=== PATIENT | male | born 1965 | race Two or more races ===

== ENCOUNTER 2020-11-06 16:24 | Inpatient (IN) | payer OTHER ==
[~2020-11-06] VITALS: Ht 165.1 cm; Wt 85.4 kg
[~2020-11-06 16:24] MED LIST: ETOMIDATE 40 MG/20 ML ONE; MIDAZOLAM 1 MG/ML, 5ML ONE; PROPOFOL 10 MG/ML, 100ML IV ONE; SUCCINYLCHOLINE 20 MG/ML, 10ML ONE; VECURONIUM 10 MG ONE
[2020-11-06] MEDS ORDERED: SODIUM CHLORIDE 0.9% 1,000ML IVBOLUS ONE ×2 (17:00→20:00)
[2020-11-06 17:22] LABS: BASOPHILS % (AUTO) 0 % (0-1); EOSINOPHILS % (AUTO) 0 % (1-7); LYMPHOCYTES % (AUTO) 9 % (22-44); MEAN CORPUSCULAR HEMOGLOBIN 33.2 pg (27.5-34.5); MEAN CORPUSCULAR HGB CONC 35.3 g/dL (33.2-36.2); MEAN PLATELET VOLUME 9.5 fL (7.4-10.4); MONOCYTES % (AUTO) 5 % (2-9); NEUTROPHILS % (AUTO) 86 % (42-75); PLATELET COUNT 178 x10^3/uL (130-400); RED BLOOD COUNT 4.76 x10^6/uL (4.38-5.82); RED CELL DISTRIBUTION WIDTH 12.7 % (9.4-14.8)
[2020-11-06 17:23] LABS: MD NO
[2020-11-06 17:33] LABS: ALANINE AMINOTRANSFERASE 138 U/L (12-78); ANION GAP 19 mmol/L (5-15); CALCIUM 8.1 mg/dL (8.5-10.1); CHLORIDE 104 mmol/L (98-107); CREATININE 2.04 mg/dL (0.7-1.3)
[2020-11-06 17:38] LABS: ALKALINE PHOSPHATASE 66 U/L (45-117); BILIRUBIN,TOTAL 0.7 mg/dL (0.2-1.0); TOTAL PROTEIN 7.8 g/dL (6.4-8.2); TROPONIN I < 0.015 ng/mL (0.000-0.045)
--- NOTE | 2020-11-06 17:42 | NUR ---
DISCUSSION REGARDING INTUBATION. PREPARATIONS MADE FOR INTUBATION AND PT'S SPO2 CAME UP TO UPPER 80'S/LOW 90'S. CURRENTLY ALLOWING SPO2 85 AND ABOVE PER ERMD ORDERS. PT REMAINS ON NRB. MOVED TO ABDOMEN LAYING FLAT FOR IMPROVED OXYGENATION. DAUGHTER AT BEDSIDE. SIDE RAILS UP, CALL LIGHT IN REACH.
[2020-11-06] MEDS ORDERED: DEXAMETHASONE 4 MG/ML, 1ML ONE (17:45)
[2020-11-06] MEDS ORDERED: PIPERACILLIN/TAZO/PMX 3.375GM 50 ML ONE (17:51)
--- NOTE | 2020-11-06 17:55 | NUR ---
PER DR SOLO NO FURTHER FLUIDS TO BE ADMINISTERED BEYOND FIRST LITER. CONTRIBUTES LACTATE TO HYPOXIA.
--- NOTE | 2020-11-06 18:01 | NUR ---
DISCUSSION WITH ERMD REGARDING LABS, MEDS AND VS. AWAITING FURTHER ORDERS.
[2020-11-06] MEDS ORDERED: DEXAMETHASONE 4 MG/ML, 1ML IVPush STA (18:16)
[2020-11-06 18:28] LABS: ACETONE, SERUM Small (20mg/dL) (Negative)
[2020-11-06] MEDS ORDERED: ENOXAPARIN 60 MG/0.6 ML SQ SCH ×2 (18:30→19:00)
[2020-11-06] MEDS ORDERED: PIPERACILLIN/TAZO/PMX 3.375GM 50 ML IV ONE (18:30)
[2020-11-06] MEDS ORDERED: ENOXAPARIN 40 MG/0.4 ML ONE (18:34)
[2020-11-06] MEDS ORDERED: ENOXAPARIN 60 MG/0.6 ML ONE (18:36)
--- NOTE | 2020-11-06 18:40 | NUR ---
PT SAT UP WELL FOR IMAGING, AND REQUESTED URINAL WHICH HE USED WELL INDEPDENENTLY. RT IN TO PLACE PT ON OPTIFLOW, AND NOW BACK IN PRONE POSITION WITH FLUIDS RUNNING ORDERED. STILL NO ADDITIONAL NS AT THIS TIME. PT DOZES TO SLEEP, MAINTAINING O2. SIDE RAILS UP, CALL LIGHT IN REACH.
--- NOTE | 2020-11-06 19:05 | NUR ---
REPORT TO JOANIE HEATH. UA COLLECTED AND SENT TO LAB.
--- NOTE | 2020-11-06 19:08 | NUR ---
REPORT FROM STACEY ASSUMED CARE OF PT AT THIS TIME
--- NOTE | 2020-11-06 19:12 | NUR ---
NOTIFIED OF BP NEW ORDERS RECIEVED
--- NOTE | 2020-11-06 19:39 | NUR ---
NEW FLUID BOLUS ORDERED BY FO BP
[2020-11-06 19:51] LABS: MICROSCOPIC INDICATED
--- NOTE | 2020-11-06 20:05 | NUR ---
SATS IN THE 70 DR HARDY TO BS, PREPAIRING TO INTUBATE
[2020-11-06] MEDS ORDERED: EPINEPHRINE SYRINGE 0.1 MG/ML, 10ML ONE (20:14)
[2020-11-06] MEDS ORDERED: MIDAZOLAM 1 MG/ML, 2ML IVPush ONE ×2 (20:30)
[2020-11-06] MEDS ORDERED: MIDAZOLAM HCL 50 MG in SODIUM CHLORIDE 0.9% 40 ML IV PRN (20:30)
[2020-11-06] MEDS ORDERED: ETOMIDATE 20 MG/10 ML IV ONE (20:30)
[2020-11-06] MEDS ORDERED: SUCCINYLCHOLINE 20 MG/ML, 10ML IVPush ONE (20:30)
--- NOTE | 2020-11-06 20:46 | NUR ---
DR HARDY INTUBATED 8.0 ETT AT 23 AT TEETH, PT ON 100%FIO2 WITH 15 PEEP VERSED GTT FOR SEDATION, POSADAS AND OG PLACED
[2020-11-06] MEDS ORDERED: VECURONIUM 10 MG IVPush ONE (21:00)
--- NOTE | 2020-11-06 21:04 | NUR ---
REPORT TO HENRY PT TO ICU5 WITH RT RN AND TECH
[2020-11-06 21:06] VITALS: BP 103/75
[2020-11-06] MEDS ORDERED: LACTATED RINGERS 1,000 ML IV SCH (21:30)
[2020-11-06] MEDS ORDERED: ONDANSETRON 2MG/ML, 2ML IVPush PRN (21:30)
[2020-11-06] MEDS ORDERED: PHARMACY MAY ADJ FOR RENAL FX MC SCH (21:30)
[2020-11-06] MEDS ORDERED: ACETAMINOPHEN 650 MG SUPP PR PRN (21:30)
[2020-11-06] MEDS ORDERED: PHARMACY MAY ADJ FOR RENAL FX MC PRN (21:30)
[2020-11-06] MEDS ORDERED: Enoxaparin 1 mg/kg protocol SQ SCH (21:30)
[2020-11-06] MEDS ORDERED: LABETALOL 5MG/ML, 20ML IVPush PRN (22:00)
[2020-11-06] MEDS ORDERED: FENTANYL PF 100 MCG/2ML IVPush PRN (22:30)
[2020-11-06] MEDS: INSULIN LISPRO 100 UNITS/ML, PEN SQ-INSULIN SCH (22:31)
[2020-11-06] MEDS: THIAMINE 100 MG in SODIUM CHLORIDE 0.9% 50 ML IV SCH (22:34)
[2020-11-06] MEDS: MELATONIN 5 MG TABLET PO/NG SCH (22:35)
[2020-11-06] MEDS ORDERED: ENOXAPARIN 80 MG/0.8 ML ONE (22:37)
[2020-11-06] MEDS ORDERED: PROPOFOL 100 ML IV ONE (23:12)
[2020-11-06 23:37] LABS: C-REACTIVE PROTEIN, QUANT 9.8 mg/dL (0.02-0.49)
[2020-11-07 00:32] LABS: POTASSIUM,URINE RANDOM 36 mmol/L
[2020-11-07 00:33] LABS: CHLORIDE,URINE RANDOM < 10 mmol/L; SODIUM,URINE RANDOM < 5 mmol/L
[2020-11-07] MEDS: PIPERACILLIN/TAZO/PMX 3.375GM 50 ML IV SCH ×4 (00:35→18:17)
[2020-11-07] MEDS: NOREPINEPHRINE 8 MG in SODIUM CHLORIDE 0.9% 242 ML IV PRN (03:54)
[2020-11-07] MEDS: INSULIN LISPRO 100 UNITS/ML, PEN SQ-INSULIN SCH ×7 (04:01→21:14)
[2020-11-07 04:39] LABS: BASOPHILS % (AUTO) 1 % (0-1); EOSINOPHILS % (AUTO) 0 % (1-7); LYMPHOCYTES % (AUTO) 14 % (22-44); MEAN CORPUSCULAR HEMOGLOBIN 33.2 pg (27.5-34.5); MEAN PLATELET VOLUME 9.8 fL (7.4-10.4); MONOCYTES % (AUTO) 5 % (2-9); NEUTROPHILS % (AUTO) 81 % (42-75); PLATELET COUNT 195 x10^3/uL (130-400); RED BLOOD COUNT 4.36 x10^6/uL (4.38-5.82)
[2020-11-07 04:53] LABS: ALBUMIN 2.6 g/dL (3.4-5.0); ANION GAP 7 mmol/L (5-15); CALCIUM 7.7 mg/dL (8.5-10.1); CHLORIDE 110 mmol/L (98-107)
[2020-11-07 04:56] LABS: ALANINE AMINOTRANSFERASE 122 U/L (12-78); ALKALINE PHOSPHATASE 58 U/L (45-117); BILIRUBIN,TOTAL 0.6 mg/dL (0.2-1.0); CREATININE 1.87 mg/dL (0.7-1.3); TOTAL PROTEIN 6.8 g/dL (6.4-8.2)
[2020-11-07 05:01] LABS: MD NO
[2020-11-07] MEDS: PROPOFOL 100 ML IV PRN ×3 (08:19→18:29)
[2020-11-07] MEDS: CHOLECALCIFEROL 5,000u TAB PO/NG SCH (08:21)
[2020-11-07] MEDS: DEXAMETHASONE 4 MG/ML, 1ML IVPush SCH (08:21)
[2020-11-07] MEDS: ZINC SULFATE 220 MG CAPSULE NG SCH (08:21)
[2020-11-07] MEDS ORDERED: INSULIN GLARGINE 100 UNITS/ML, PEN SQ-INSULIN ONE (10:00)
[2020-11-07] MEDS ORDERED: DEXTROSE 50%, 50ML SYRINGE IVPush PRN (10:00)
[2020-11-07] MEDS ORDERED: DEXTROSE 4 GM TAB.CHEW PO PRN (10:00)
[2020-11-07] MEDS ORDERED: GLUCAGON 1 MG IM PRN (10:00)
[2020-11-07] MEDS: ENOXAPARIN 80 MG/0.8 ML SQ SCH ×2 (11:29→23:24)
[2020-11-07] MEDS: ASCORBIC ACID 500 MG TABLET PO SCH ×2 (11:29→19:23)
[2020-11-07] MEDS ORDERED: REMDESIVIR 200 MG in SODIUM CHLORIDE 0.9% 250 ML IVPB ONE (11:30)
[2020-11-07] MEDS: MELATONIN 5 MG TABLET PO/NG SCH (19:24)
[2020-11-07] MEDS: SODIUM CHLORIDE FLUSH 10ML SYR IVF SCH (19:24)
[2020-11-07] MEDS ORDERED: PHENYLEPHRINE 50 MG in SODIUM CHLORIDE 0.9% 245 ML IV PRN (20:00)
[2020-11-07] MEDS ORDERED: INSULIN GLARGINE 100 UNITS/ML, PEN SQ-INSULIN SCH (21:00)
[2020-11-07] MEDS: THIAMINE 100 MG in SODIUM CHLORIDE 0.9% 50 ML IV SCH (21:14)
[2020-11-07] MEDS ORDERED: LACTATED RINGERS 1,000 ML IV SCH (21:30)
[2020-11-08] MEDS: PIPERACILLIN/TAZO/PMX 3.375GM 50 ML IV SCH (00:22)
[2020-11-08] MEDS: PROPOFOL 100 ML IV PRN (02:23)
[2020-11-08] MEDS: MIDAZOLAM HCL 50 MG in SODIUM CHLORIDE 0.9% 40 ML IV PRN ×2 (02:59→23:47)
[2020-11-08] MEDS: FENTANYL PF 1,000 MCG in SODIUM CHLORIDE 0.9% 80 ML IV PRN ×2 (03:00→23:46)
[2020-11-08] MEDS: INSULIN LISPRO 100 UNITS/ML, PEN SQ-INSULIN SCH ×4 (03:14→20:03)
[2020-11-08 04:47] LABS: ALANINE AMINOTRANSFERASE 106 U/L (12-78); ALBUMIN 2.4 g/dL (3.4-5.0); ANION GAP 5 mmol/L (5-15); CALCIUM 8.1 mg/dL (8.5-10.1); CHLORIDE 113 mmol/L (98-107); CREATININE 1.54 mg/dL (0.7-1.3)
[2020-11-08 04:49] LABS: ALKALINE PHOSPHATASE 51 U/L (45-117); BILIRUBIN,TOTAL 0.6 mg/dL (0.2-1.0); TOTAL PROTEIN 6.3 g/dL (6.4-8.2)
[2020-11-08 04:50] LABS: INTERNATIONAL NORMALIZED RATIO 0.94 (0.93-1.1)
[2020-11-08 06:58] LABS: BASOPHILS % (AUTO) 0 % (0-1); EOSINOPHILS % (AUTO) 0 % (1-7); LYMPHOCYTES % (AUTO) 8 % (22-44); MEAN CORPUSCULAR HEMOGLOBIN 32.3 pg (27.5-34.5); MEAN CORPUSCULAR HGB CONC 34.2 g/dL (33.2-36.2); MEAN PLATELET VOLUME 9.5 fL (7.4-10.4); MONOCYTES % (AUTO) 5 % (2-9); NEUTROPHILS % (AUTO) 87 % (42-75); PLATELET COUNT 219 x10^3/uL (130-400); RED BLOOD COUNT 3.95 x10^6/uL (4.38-5.82)
[2020-11-08 07:00] LABS: MD NO
[2020-11-08] MEDS ORDERED: POTASSIUM CHLORIDE 10% 40 MEQ/30 ML UDC PO ONE (08:00)
[2020-11-08] MEDS: SODIUM CHLORIDE FLUSH 10ML SYR IVF SCH ×4 (08:11→20:06)
[2020-11-08] MEDS: CEFTRIAXONE PMX 1GM/50ML 50 ML IV SCH (08:11)
[2020-11-08] MEDS: DEXAMETHASONE 4 MG/ML, 1ML IVPush SCH (08:12)
[2020-11-08] MEDS: THIAMINE 100MG TABLET PO SCH ×2 (08:12→20:05)
[2020-11-08] MEDS: ZINC SULFATE 220 MG CAPSULE NG SCH (08:12)
[2020-11-08] MEDS: CHOLECALCIFEROL 5,000u TAB PO/NG SCH (08:12)
[2020-11-08] MEDS: ASCORBIC ACID 500 MG TABLET PO SCH ×2 (08:13→20:04)
[2020-11-08] MEDS: ENOXAPARIN 80 MG/0.8 ML SQ SCH (08:14)
[2020-11-08] MEDS: INSULIN GLARGINE 100 UNITS/ML, PEN SQ-INSULIN SCH ×2 (08:25→20:04)
[2020-11-08] MEDS ORDERED: DOPAMINE/D5W PMX 250 ML IV PRN ×2 (09:00→09:30)
[2020-11-08] MEDS ORDERED: ATROPINE SYRINGE 0.1 MG/ML, 10ML ONE ×2 (09:42→14:27)
[2020-11-08] MEDS ORDERED: ATROPINE SYRINGE 0.1 MG/ML, 10ML IVPush ONE (10:00)
[2020-11-08 10:37] LABS: TROPONIN I < 0.015 ng/mL (0.000-0.045)
[2020-11-08] MEDS: AZITHROMYCIN 500 MG in SODIUM CHLORIDE 0.9% 250 ML IV SCH (10:50)
[2020-11-08] MEDS: REMDESIVIR 100 MG in SODIUM CHLORIDE 0.9% 250 ML IVPB SCH (11:59)
[2020-11-08] MEDS ORDERED: DEXTROSE 50%, 50ML SYRINGE IVPush PRN (12:00)
[2020-11-08] MEDS ORDERED: PHARMACY MAY ADJ FOR RENAL FX MC SCH (12:00)
[2020-11-08] MEDS ORDERED: DEXTROSE 4 GM TAB.CHEW PO PRN (12:00)
[2020-11-08] MEDS ORDERED: GLUCAGON 1 MG IM PRN (12:00)
[2020-11-08] MEDS: MELATONIN 5 MG TABLET PO/NG SCH (20:05)
[2020-11-08] MEDS: ATROPINE SYRINGE 0.1 MG/ML, 10ML IVPush PRN (22:02)
[2020-11-09] MEDS: INSULIN LISPRO 100 UNITS/ML, PEN SQ-INSULIN SCH ×4 (01:38→19:48)
[2020-11-09 04:50] LABS: BASOPHILS % (AUTO) 0 % (0-1); EOSINOPHILS % (AUTO) 0 % (1-7); LYMPHOCYTES % (AUTO) 10 % (22-44); MD NO; MEAN CORPUSCULAR HEMOGLOBIN 33.1 pg (27.5-34.5); MEAN PLATELET VOLUME 9.2 fL (7.4-10.4); MONOCYTES % (AUTO) 5 % (2-9); NEUTROPHILS % (AUTO) 86 % (42-75); PLATELET COUNT 200 x10^3/uL (130-400); RED BLOOD COUNT 3.94 x10^6/uL (4.38-5.82); RED CELL DISTRIBUTION WIDTH 13.1 % (9.4-14.8)
[2020-11-09 05:00] LABS: ALBUMIN 2.3 g/dL (3.4-5.0); CALCIUM 8.1 mg/dL (8.5-10.1)
[2020-11-09] MEDS: ATROPINE SYRINGE 0.1 MG/ML, 10ML IVPush PRN ×2 (05:00→15:19)
[2020-11-09 05:03] LABS: ALANINE AMINOTRANSFERASE 124 U/L (12-78); ALKALINE PHOSPHATASE 56 U/L (45-117); BILIRUBIN,TOTAL 0.4 mg/dL (0.2-1.0); CREATININE 0.98 mg/dL (0.7-1.3); TOTAL PROTEIN 6.2 g/dL (6.4-8.2)
[2020-11-09 05:14] LABS: ANION GAP 6 mmol/L (5-15); CHLORIDE 118 mmol/L (98-107)
[2020-11-09] MEDS: MIDAZOLAM HCL 50 MG in SODIUM CHLORIDE 0.9% 40 ML IV PRN ×3 (05:32→18:35)
--- NOTE | 2020-11-09 06:31 | NUR ---
Tube feed: Vital AF: goal on propofol: 45 ml/hr, off propofol:55 ml/hr Addendum: 11/09/20 at [address] Amended: Links added.
[2020-11-09] MEDS ORDERED: FUROSEMIDE 40 MG/4 ML IV ONE (08:00)
[2020-11-09] MEDS: CEFTRIAXONE PMX 1GM/50ML 50 ML IV SCH (08:44)
[2020-11-09] MEDS: DEXAMETHASONE 4 MG/ML, 1ML IVPush SCH (08:44)
[2020-11-09] MEDS: SODIUM CHLORIDE FLUSH 10ML SYR IVF SCH ×4 (08:46→19:52)
[2020-11-09] MEDS: ASCORBIC ACID 500 MG TABLET PO SCH ×2 (08:47→19:51)
[2020-11-09] MEDS: ENOXAPARIN 80 MG/0.8 ML SQ SCH (08:47)
[2020-11-09] MEDS: ZINC SULFATE 220 MG CAPSULE NG SCH (08:48)
[2020-11-09] MEDS: THIAMINE 100MG TABLET PO SCH ×2 (08:48→19:51)
[2020-11-09] MEDS: CHOLECALCIFEROL 5,000u TAB PO/NG SCH (08:48)
[2020-11-09] MEDS: INSULIN GLARGINE 100 UNITS/ML, PEN SQ-INSULIN SCH ×2 (09:00→19:48)
[2020-11-09] MEDS: AZITHROMYCIN 500 MG in SODIUM CHLORIDE 0.9% 250 ML IV SCH (09:25)
[2020-11-09] MEDS: REMDESIVIR 100 MG in SODIUM CHLORIDE 0.9% 250 ML IVPB SCH (11:17)
[2020-11-09] MEDS: FENTANYL PF 1,000 MCG in SODIUM CHLORIDE 0.9% 80 ML IV PRN (11:17)
[2020-11-09] MEDS: MELATONIN 5 MG TABLET PO/NG SCH (19:52)
[2020-11-09] MEDS: FENTANYL PF 2,500 MCG in SODIUM CHLORIDE 0.9% 200 ML IV PRN (23:56)
[2020-11-10] MEDS: MIDAZOLAM HCL 50 MG in SODIUM CHLORIDE 0.9% 40 ML IV PRN ×3 (04:12→16:07)
[2020-11-10] MEDS: INSULIN LISPRO 100 UNITS/ML, PEN SQ-INSULIN SCH ×4 (04:12→20:05)
[2020-11-10 04:43] LABS: BASOPHILS % (AUTO) 0 % (0-1); EOSINOPHILS % (AUTO) 0 % (1-7); LYMPHOCYTES % (AUTO) 9 % (22-44); MEAN CORPUSCULAR HEMOGLOBIN 33.1 pg (27.5-34.5); MEAN CORPUSCULAR HGB CONC 34.2 g/dL (33.2-36.2); MONOCYTES % (AUTO) 5 % (2-9); NEUTROPHILS % (AUTO) 86 % (42-75); PLATELET COUNT 215 x10^3/uL (130-400); RED BLOOD COUNT 3.92 x10^6/uL (4.38-5.82); RED CELL DISTRIBUTION WIDTH 13.2 % (9.4-14.8)
[2020-11-10 04:54] LABS: CALCIUM 8.4 mg/dL (8.5-10.1); CHLORIDE 119 mmol/L (98-107)
[2020-11-10 04:59] LABS: ALANINE AMINOTRANSFERASE 133 U/L (12-78); ALBUMIN 2.4 g/dL (3.4-5.0); ALKALINE PHOSPHATASE 65 U/L (45-117); ANION GAP 6 mmol/L (5-15); BILIRUBIN,TOTAL 0.5 mg/dL (0.2-1.0); CREATININE 0.99 mg/dL (0.7-1.3); TOTAL PROTEIN 6.1 g/dL (6.4-8.2)
[2020-11-10 05:41] LABS: MD SCAN
[2020-11-10] MEDS: SODIUM CHLORIDE FLUSH 10ML SYR IVF SCH ×4 (09:00→20:04)
[2020-11-10] MEDS: INSULIN GLARGINE 100 UNITS/ML, PEN SQ-INSULIN SCH (09:00)
[2020-11-10] MEDS: CEFTRIAXONE PMX 1GM/50ML 50 ML IV SCH (09:29)
[2020-11-10] MEDS: AZITHROMYCIN 500 MG in SODIUM CHLORIDE 0.9% 250 ML IV SCH (09:29)
[2020-11-10] MEDS: ENOXAPARIN 80 MG/0.8 ML SQ SCH (09:30)
[2020-11-10] MEDS: ZINC SULFATE 220 MG CAPSULE NG SCH (09:30)
[2020-11-10] MEDS: ASCORBIC ACID 500 MG TABLET PO SCH ×2 (09:30→20:04)
[2020-11-10] MEDS: CHOLECALCIFEROL 5,000u TAB PO/NG SCH (09:30)
[2020-11-10] MEDS: THIAMINE 100MG TABLET PO SCH ×2 (09:30→20:04)
[2020-11-10] MEDS: DEXAMETHASONE 4 MG/ML, 1ML IVPush SCH (09:30)
[2020-11-10] MEDS ORDERED: ACETAMINOPHEN 650 MG/20.3 ML UDC ONE (09:43)
[2020-11-10] MEDS: ACETAMINOPHEN 650 MG/20.3 ML UDC PO PRN (09:46)
[2020-11-10] MEDS: REMDESIVIR 100 MG in SODIUM CHLORIDE 0.9% 250 ML IVPB SCH (11:15)
[2020-11-10] MEDS: METHYLNALTREXONE 12 MG/0.6 ML SYR SQ SCH (11:15)
[2020-11-10] MEDS: MELATONIN 5 MG TABLET PO/NG SCH (20:04)
[2020-11-10] MEDS: FENTANYL PF 2,500 MCG in SODIUM CHLORIDE 0.9% 200 ML IV PRN (20:20)
[2020-11-11] MEDS: MIDAZOLAM HCL 50 MG in SODIUM CHLORIDE 0.9% 40 ML IV PRN ×4 (00:24→22:10)
[2020-11-11] MEDS: INSULIN LISPRO 100 UNITS/ML, PEN SQ-INSULIN SCH ×4 (03:25→21:12)
[2020-11-11] MEDS: ACETAMINOPHEN 650 MG/20.3 ML UDC PO PRN (03:28)
[2020-11-11 03:48] LABS: MEAN CORPUSCULAR HEMOGLOBIN 33.7 pg (27.5-34.5); MEAN CORPUSCULAR HGB CONC 34.7 g/dL (33.2-36.2); MEAN PLATELET VOLUME 8.6 fL (7.4-10.4); PLATELET COUNT 199 x10^3/uL (130-400); RED BLOOD COUNT 3.69 x10^6/uL (4.38-5.82); RED CELL DISTRIBUTION WIDTH 13.4 % (9.4-14.8)
[2020-11-11 03:52] LABS: ALANINE AMINOTRANSFERASE 108 U/L (12-78); ALBUMIN 2.2 g/dL (3.4-5.0); ANION GAP 3 mmol/L (5-15); CALCIUM 8.1 mg/dL (8.5-10.1); CHLORIDE 118 mmol/L (98-107); CREATININE 0.92 mg/dL (0.7-1.3); TRIGLYCERIDES 131 mg/dL (50-200)
[2020-11-11 03:55] LABS: ALKALINE PHOSPHATASE 58 U/L (45-117); BILIRUBIN,TOTAL 0.6 mg/dL (0.2-1.0); TOTAL PROTEIN 5.9 g/dL (6.4-8.2)
[2020-11-11 04:19] LABS: MD YES
[2020-11-11 04:22] LABS: BAND#(MANUAL) 0.07 x10^3/uL; BANDS%(MANUAL) 1 % (0-7); BASOS#(MANUAL) 0.07 x10^3/uL (0-0.1); BASOS% (MANUAL) 1 % (0-1); EOS#(MANUAL) 0.07 x10^3/uL (0.0-0.4); EOS% (MANUAL) 1 % (1-7); LYMPH#(MANUAL) 0.44 x10^3/uL (1-3.4); LYMPHS% (MANUAL) 6 % (22-44); METAMYELOCYTES# (MANUAL) 0.15 x10^3/uL (0-0); METAMYELOCYTES% (MANUAL) 2 % (0-1); MONOS% (MANUAL) 4 % (2-9); MYELOCYTES# (MANUAL) 0.22 x10^3/uL (0-0); MYELOCYTES% (MANUAL) 3 % (0-0); SEG#(MANUAL) 6.07 x10^3/uL (1.8-6.8); SEGS% (MANUAL) 82 % (42-75)
[2020-11-11 04:23] LABS: ANISOCYTOSIS 1+; POLYCHROMASIA 1+
[2020-11-11 04:25] LABS: <PLATELET ESTIMATE> ADEQUATE; LARGE PLATELETS 1+
[2020-11-11] MEDS: ENOXAPARIN 80 MG/0.8 ML SQ SCH (09:00)
[2020-11-11] MEDS: CHOLECALCIFEROL 5,000u TAB PO/NG SCH (09:00)
[2020-11-11] MEDS: CEFTRIAXONE PMX 1GM/50ML 50 ML IV SCH (09:01)
[2020-11-11] MEDS: ZINC SULFATE 220 MG CAPSULE NG SCH (09:02)
[2020-11-11] MEDS: DEXAMETHASONE 4 MG/ML, 1ML IVPush SCH (09:02)
[2020-11-11] MEDS: FUROSEMIDE 40 MG/4 ML IV SCH (09:02)
[2020-11-11] MEDS: ASCORBIC ACID 500 MG TABLET PO SCH ×2 (09:02→21:09)
[2020-11-11] MEDS: THIAMINE 100MG TABLET PO SCH ×2 (09:03→21:09)
[2020-11-11] MEDS: SODIUM CHLORIDE FLUSH 10ML SYR IVF SCH ×2 (09:06→21:10)
[2020-11-11] MEDS: AZITHROMYCIN 500 MG in SODIUM CHLORIDE 0.9% 250 ML IV SCH (09:39)
[2020-11-11] MEDS: REMDESIVIR 100 MG in SODIUM CHLORIDE 0.9% 250 ML IVPB SCH (10:55)
[2020-11-11] MEDS: FENTANYL PF 2,500 MCG in SODIUM CHLORIDE 0.9% 200 ML IV PRN (12:30)
[2020-11-11] MEDS ORDERED: VECURONIUM 50 MG in SODIUM CHLORIDE 0.9% 50 ML IV PRN (16:30)
[2020-11-11] MEDS ORDERED: VECURONIUM 10 MG IVPush ONE (16:30)
[2020-11-11] MEDS: PROPOFOL 100 ML IV PRN (16:30)
[2020-11-11] MEDS: MELATONIN 5 MG TABLET PO/NG SCH (21:09)
[2020-11-12] MEDS: PROPOFOL 100 ML IV PRN ×3 (00:27→20:16)
[2020-11-12] MEDS: INSULIN LISPRO 100 UNITS/ML, PEN SQ-INSULIN SCH ×4 (03:00→21:43)
[2020-11-12 04:48] LABS: MEAN CORPUSCULAR HGB CONC 33.9 g/dL (33.2-36.2); MEAN PLATELET VOLUME 8.8 fL (7.4-10.4); PLATELET COUNT 208 x10^3/uL (130-400); RED BLOOD COUNT 3.84 x10^6/uL (4.38-5.82); RED CELL DISTRIBUTION WIDTH 13.2 % (9.4-14.8)
[2020-11-12 04:56] LABS: ANION GAP 2 mmol/L (5-15); CALCIUM 8.2 mg/dL (8.5-10.1); CHLORIDE 114 mmol/L (98-107); CREATININE 0.82 mg/dL (0.7-1.3)
[2020-11-12 05:45] LABS: MD YES
[2020-11-12 05:47] LABS: ANISOCYTOSIS 1+; BAND#(MANUAL) 0.08 x10^3/uL; BANDS%(MANUAL) 1 % (0-7); EOS#(MANUAL) 0.08 x10^3/uL (0.0-0.4); EOS% (MANUAL) 1 % (1-7); LYMPH#(MANUAL) 0.62 x10^3/uL (1-3.4); LYMPHS% (MANUAL) 8 % (22-44); METAMYELOCYTES# (MANUAL) 0.16 x10^3/uL (0-0); METAMYELOCYTES% (MANUAL) 2 % (0-1); MONOS#(MANUAL) 0.16 x10^3/uL (0.3-2.7); MONOS% (MANUAL) 2 % (2-9); MYELOCYTES# (MANUAL) 0.08 x10^3/uL (0-0); MYELOCYTES% (MANUAL) 1 % (0-0); POLYCHROMASIA 1+; SEG#(MANUAL) 6.63 x10^3/uL (1.8-6.8); SEGS% (MANUAL) 85 % (42-75)
[2020-11-12 05:48] LABS: <PLATELET ESTIMATE> ADEQUATE; <PLT MORPHOLOGY> NORMAL PLT MORPH
[2020-11-12] MEDS: CEFTRIAXONE PMX 1GM/50ML 50 ML IV SCH (08:18)
[2020-11-12] MEDS: SODIUM CHLORIDE FLUSH 10ML SYR IVF SCH ×2 (08:19→20:14)
[2020-11-12] MEDS: DEXAMETHASONE 4 MG/ML, 1ML IVPush SCH (08:19)
[2020-11-12] MEDS: ENOXAPARIN 80 MG/0.8 ML SQ SCH (08:19)
[2020-11-12] MEDS: FUROSEMIDE 40 MG/4 ML IV SCH (08:19)
[2020-11-12] MEDS: MIDAZOLAM HCL 50 MG in SODIUM CHLORIDE 0.9% 40 ML IV PRN ×2 (08:48→17:01)
[2020-11-12] MEDS: METHYLNALTREXONE 12 MG/0.6 ML SYR SQ SCH (09:00)
[2020-11-12] MEDS: ZINC SULFATE 220 MG CAPSULE NG SCH (10:26)
[2020-11-12] MEDS: ASCORBIC ACID 500 MG TABLET PO SCH ×2 (10:26→20:12)
[2020-11-12] MEDS: THIAMINE 100MG TABLET PO SCH ×2 (10:26→20:13)
[2020-11-12] MEDS: AZITHROMYCIN 500 MG in SODIUM CHLORIDE 0.9% 250 ML IV SCH (10:27)
[2020-11-12] MEDS: CHOLECALCIFEROL 5,000u TAB PO/NG SCH (10:27)
[2020-11-12] MEDS ORDERED: VECURONIUM 10 MG IVPush ONE (17:00)
[2020-11-12] MEDS: MELATONIN 5 MG TABLET PO/NG SCH (20:12)
[2020-11-12] MEDS ORDERED: PROPOFOL 50 ML IV PRN (21:00)
[2020-11-12] MEDS: ACETAMINOPHEN 650 MG/20.3 ML UDC PO PRN (22:34)
[2020-11-12] MEDS: FENTANYL PF 2,500 MCG in SODIUM CHLORIDE 0.9% 200 ML IV PRN (22:34)
[2020-11-13] MEDS: MIDAZOLAM HCL 50 MG in SODIUM CHLORIDE 0.9% 40 ML IV PRN ×2 (00:09→08:19)
[2020-11-13] MEDS: INSULIN LISPRO 100 UNITS/ML, PEN SQ-INSULIN SCH ×4 (02:35→20:06)
[2020-11-13 03:04] LABS: BASOPHILS % (AUTO) 0 % (0-1); EOSINOPHILS % (AUTO) 3 % (1-7); LYMPHOCYTES % (AUTO) 5 % (22-44); MEAN CORPUSCULAR HEMOGLOBIN 33.1 pg (27.5-34.5); MEAN PLATELET VOLUME 8.5 fL (7.4-10.4); MONOCYTES % (AUTO) 3 % (2-9); NEUTROPHILS % (AUTO) 89 % (42-75); PLATELET COUNT 215 x10^3/uL (130-400); RED BLOOD COUNT 3.86 x10^6/uL (4.38-5.82); RED CELL DISTRIBUTION WIDTH 12.9 % (9.4-14.8)
[2020-11-13 03:08] LABS: MD NO
[2020-11-13 03:11] LABS: ANION GAP 6 mmol/L (5-15); CALCIUM 8.1 mg/dL (8.5-10.1); CHLORIDE 110 mmol/L (98-107); CREATININE 1.09 mg/dL (0.7-1.3)
[2020-11-13 03:12] LABS: BILIRUBIN,TOTAL 0.6 mg/dL (0.2-1.0)
[2020-11-13] MEDS: CEFTRIAXONE PMX 1GM/50ML 50 ML IV SCH (08:19)
[2020-11-13] MEDS: ENOXAPARIN 80 MG/0.8 ML SQ SCH (08:20)
[2020-11-13] MEDS: INSULIN GLARGINE 100 UNITS/ML, PEN SQ-INSULIN SCH ×2 (08:20→20:07)
[2020-11-13] MEDS: FUROSEMIDE 40 MG/4 ML IV SCH (08:21)
[2020-11-13] MEDS: THIAMINE 100MG TABLET PO SCH ×2 (08:21→20:09)
[2020-11-13] MEDS: DEXAMETHASONE 4 MG/ML, 1ML IVPush SCH (08:21)
[2020-11-13] MEDS: CHOLECALCIFEROL 5,000u TAB PO/NG SCH (08:21)
[2020-11-13] MEDS: ZINC SULFATE 220 MG CAPSULE NG SCH (08:21)
[2020-11-13] MEDS: ASCORBIC ACID 500 MG TABLET PO SCH ×2 (08:22→20:08)
[2020-11-13] MEDS: SODIUM CHLORIDE FLUSH 10ML SYR IVF SCH ×2 (08:22→20:09)
[2020-11-13] MEDS: PROPOFOL 100 ML IV PRN ×2 (08:37→17:30)
[2020-11-13] MEDS ORDERED: PROPOFOL 50 ML IV PRN (09:30)
[2020-11-13] MEDS: DOCUSATE 50 MG/5 ML, 10ML UDC PO SCH (11:23)
[2020-11-13] MEDS: LACTULOSE 20 GM/30 ML UDC PO PRN (11:23)
[2020-11-13] MEDS: FENTANYL PF 2,500 MCG in SODIUM CHLORIDE 0.9% 200 ML IV PRN (17:42)
[2020-11-13] MEDS: SENNA 176 MG/5 ML ORAL SOL PO SCH (20:07)
[2020-11-13] MEDS: MELATONIN 5 MG TABLET PO/NG SCH (20:08)
[2020-11-13] MEDS ORDERED: BISACODYL 10 MG SUPP PR PRN (21:00)
[2020-11-14] MEDS: INSULIN LISPRO 100 UNITS/ML, PEN SQ-INSULIN SCH ×4 (03:28→21:25)
[2020-11-14] MEDS: PROPOFOL 100 ML IV PRN ×3 (03:32→18:16)
[2020-11-14 03:47] LABS: BASOPHILS % (AUTO) 1 % (0-1); EOSINOPHILS % (AUTO) 2 % (1-7); LYMPHOCYTES % (AUTO) 7 % (22-44); MEAN CORPUSCULAR HEMOGLOBIN 34.1 pg (27.5-34.5); MEAN CORPUSCULAR HGB CONC 35.3 g/dL (33.2-36.2); MEAN PLATELET VOLUME 9.2 fL (7.4-10.4); MONOCYTES % (AUTO) 3 % (2-9); NEUTROPHILS % (AUTO) 88 % (42-75); PLATELET COUNT 211 x10^3/uL (130-400); RED BLOOD COUNT 3.72 x10^6/uL (4.38-5.82); RED CELL DISTRIBUTION WIDTH 12.9 % (9.4-14.8)
[2020-11-14 03:52] LABS: MD NO
[2020-11-14 03:53] LABS: ANION GAP 4 mmol/L (5-15); CALCIUM 7.5 mg/dL (8.5-10.1); CHLORIDE 109 mmol/L (98-107); CREATININE 0.88 mg/dL (0.7-1.3)
[2020-11-14 03:54] LABS: BILIRUBIN,TOTAL 0.7 mg/dL (0.2-1.0); TRIGLYCERIDES 733 mg/dL (50-200)
[2020-11-14] MEDS: INSULIN GLARGINE 100 UNITS/ML, PEN SQ-INSULIN SCH ×2 (07:49→21:25)
[2020-11-14] MEDS: LACTULOSE 20 GM/30 ML UDC PO PRN (09:44)
[2020-11-14] MEDS: ASCORBIC ACID 500 MG TABLET PO SCH ×2 (09:44→20:42)
[2020-11-14] MEDS: FUROSEMIDE 40 MG/4 ML IV SCH (09:44)
[2020-11-14] MEDS: CHOLECALCIFEROL 5,000u TAB PO/NG SCH (09:44)
[2020-11-14] MEDS: DOCUSATE 50 MG/5 ML, 10ML UDC PO SCH (09:44)
[2020-11-14] MEDS: ZINC SULFATE 220 MG CAPSULE NG SCH (09:44)
[2020-11-14] MEDS: THIAMINE 100MG TABLET PO SCH ×2 (09:44→20:42)
[2020-11-14] MEDS: ENOXAPARIN 80 MG/0.8 ML SQ SCH (09:45)
[2020-11-14] MEDS: SODIUM CHLORIDE FLUSH 10ML SYR IVF SCH ×2 (09:45→20:42)
[2020-11-14] MEDS: METHYLNALTREXONE 12 MG/0.6 ML SYR SQ SCH (11:21)
[2020-11-14] MEDS: ACETAMINOPHEN 650 MG/20.3 ML UDC PO PRN (12:34)
[2020-11-14] MEDS: FENTANYL PF 2,500 MCG in SODIUM CHLORIDE 0.9% 200 ML IV PRN (12:36)
[2020-11-14] MEDS: MELATONIN 5 MG TABLET PO/NG SCH (20:42)
[2020-11-14] MEDS: SENNA 176 MG/5 ML ORAL SOL PO SCH (22:10)
[2020-11-15] MEDS: PROPOFOL 100 ML IV PRN ×7 (02:52→22:28)
[2020-11-15] MEDS: INSULIN LISPRO 100 UNITS/ML, PEN SQ-INSULIN SCH ×4 (03:07→20:16)
[2020-11-15 03:46] LABS: MEAN CORPUSCULAR HGB CONC 34.3 g/dL (33.2-36.2); MEAN PLATELET VOLUME 9.7 fL (7.4-10.4); PLATELET COUNT 197 x10^3/uL (130-400); RED BLOOD COUNT 3.72 x10^6/uL (4.38-5.82); RED CELL DISTRIBUTION WIDTH 12.8 % (9.4-14.8)
[2020-11-15 03:51] LABS: CALCIUM 8.4 mg/dL (8.5-10.1); CHLORIDE 108 mmol/L (98-107)
[2020-11-15 03:53] LABS: BILIRUBIN,TOTAL 0.8 mg/dL (0.2-1.0); CREATININE 1.05 mg/dL (0.7-1.3)
[2020-11-15 04:00] LABS: ANION GAP 6 mmol/L (5-15)
[2020-11-15 04:13] LABS: MD YES
[2020-11-15 04:14] LABS: BAND#(MANUAL) 0.37 x10^3/uL; BANDS%(MANUAL) 4 % (0-7); LYMPH#(MANUAL) 1.49 x10^3/uL (1-3.4); LYMPHS% (MANUAL) 16 % (22-44); METAMYELOCYTES# (MANUAL) 0.09 x10^3/uL (0-0); METAMYELOCYTES% (MANUAL) 1 % (0-1); MONOS#(MANUAL) 0.19 x10^3/uL (0.3-2.7); MONOS% (MANUAL) 2 % (2-9); MYELOCYTES# (MANUAL) 0.09 x10^3/uL (0-0); MYELOCYTES% (MANUAL) 1 % (0-0); SEG#(MANUAL) 7.07 x10^3/uL (1.8-6.8); SEGS% (MANUAL) 76 % (42-75)
[2020-11-15 04:15] LABS: ANISOCYTOSIS 1+; POLYCHROMASIA 1+
[2020-11-15 04:16] LABS: <PLATELET ESTIMATE> ADEQUATE; LARGE PLATELETS 1+; TOXIC GRAN 1+
[2020-11-15] MEDS: ZINC SULFATE 220 MG CAPSULE NG SCH (08:03)
[2020-11-15] MEDS: DOCUSATE 50 MG/5 ML, 10ML UDC PO SCH (08:03)
[2020-11-15] MEDS: FUROSEMIDE 40 MG/4 ML IV SCH (08:03)
[2020-11-15] MEDS: SODIUM CHLORIDE FLUSH 10ML SYR IVF SCH ×2 (08:03→20:24)
[2020-11-15] MEDS: INSULIN GLARGINE 100 UNITS/ML, PEN SQ-INSULIN SCH ×2 (08:03→20:19)
[2020-11-15] MEDS: CHOLECALCIFEROL 5,000u TAB PO/NG SCH (08:04)
[2020-11-15] MEDS: THIAMINE 100MG TABLET PO SCH ×2 (08:04→20:24)
[2020-11-15] MEDS: ASCORBIC ACID 500 MG TABLET PO SCH ×2 (08:05→20:24)
[2020-11-15] MEDS: ENOXAPARIN 80 MG/0.8 ML SQ SCH (08:06)
[2020-11-15] MEDS: LACTULOSE 20 GM/30 ML UDC PO PRN (08:08)
[2020-11-15] MEDS: PIPERACILLIN/TAZO/PMX 4.5GM 100 ML IV SCH ×2 (16:25→22:50)
[2020-11-15] MEDS: ACETAMINOPHEN 650 MG/20.3 ML UDC PO PRN (18:16)
[2020-11-15] MEDS: MELATONIN 5 MG TABLET PO/NG SCH (20:24)
[2020-11-16] MEDS: PROPOFOL 100 ML IV PRN ×6 (02:02→23:22)
[2020-11-16] MEDS: PIPERACILLIN/TAZO/PMX 4.5GM 100 ML IV SCH ×2 (03:09→08:26)
[2020-11-16] MEDS: INSULIN LISPRO 100 UNITS/ML, PEN SQ-INSULIN SCH ×4 (03:13→20:45)
[2020-11-16 03:32] LABS: BASOPHILS % (AUTO) 0 % (0-1); EOSINOPHILS % (AUTO) 2 % (1-7); LYMPHOCYTES % (AUTO) 8 % (22-44); MEAN CORPUSCULAR HEMOGLOBIN 34.6 pg (27.5-34.5); MEAN CORPUSCULAR HGB CONC 35.8 g/dL (33.2-36.2); MEAN PLATELET VOLUME 9.9 fL (7.4-10.4); MONOCYTES % (AUTO) 2 % (2-9); NEUTROPHILS % (AUTO) 88 % (42-75); PLATELET COUNT 193 x10^3/uL (130-400); RED BLOOD COUNT 3.37 x10^6/uL (4.38-5.82); RED CELL DISTRIBUTION WIDTH 12.9 % (9.4-14.8)
[2020-11-16 03:35] LABS: ANION GAP 4 mmol/L (5-15); CALCIUM 7.5 mg/dL (8.5-10.1); CHLORIDE 105 mmol/L (98-107); CREATININE 0.95 mg/dL (0.7-1.3)
[2020-11-16 03:39] LABS: BILIRUBIN,TOTAL 0.9 mg/dL (0.2-1.0)
[2020-11-16 03:41] LABS: MD NO
[2020-11-16] MEDS ORDERED: POTASSIUM CHLORIDE 10% 40 MEQ/30 ML UDC PO ONE (08:00)
[2020-11-16] MEDS: FUROSEMIDE 40 MG/4 ML IV SCH (08:27)
[2020-11-16] MEDS: ENOXAPARIN 80 MG/0.8 ML SQ SCH (08:27)
[2020-11-16] MEDS: DOCUSATE 50 MG/5 ML, 10ML UDC PO SCH (08:27)
[2020-11-16] MEDS: THIAMINE 100MG TABLET PO SCH ×2 (08:28→20:56)
[2020-11-16] MEDS: CHOLECALCIFEROL 5,000u TAB PO/NG SCH (08:29)
[2020-11-16] MEDS: ASCORBIC ACID 500 MG TABLET PO SCH ×2 (08:29→20:56)
[2020-11-16] MEDS: INSULIN GLARGINE 100 UNITS/ML, PEN SQ-INSULIN SCH ×2 (08:30→20:46)
[2020-11-16] MEDS: ZINC SULFATE 220 MG CAPSULE NG SCH (08:30)
[2020-11-16] MEDS: METHYLNALTREXONE 12 MG/0.6 ML SYR SQ SCH (08:31)
[2020-11-16] MEDS: SODIUM CHLORIDE FLUSH 10ML SYR IVF SCH ×2 (08:32→20:57)
[2020-11-16] MEDS: LIDOCAINE-MPF 1%, 2ML ENDO PRN ×5 (10:38→22:55)
[2020-11-16] MEDS: SULFAMETH./TRIMETHOPRIM 10 ML in DEXTROSE 5% 250 ML IV SCH ×2 (11:39→21:14)
[2020-11-16] MEDS: ACETAMINOPHEN 650 MG/20.3 ML UDC PO PRN (13:30)
[2020-11-16] MEDS: FENTANYL PF 2,500 MCG in SODIUM CHLORIDE 0.9% 200 ML IV PRN (16:02)
[2020-11-16] MEDS: MELATONIN 5 MG TABLET PO/NG SCH (20:57)
[2020-11-17] MEDS: ACETAMINOPHEN 650 MG/20.3 ML UDC PO PRN ×2 (00:23→23:44)
[2020-11-17] MEDS: NOREPINEPHRINE 8 MG in SODIUM CHLORIDE 0.9% 242 ML IV PRN (01:56)
[2020-11-17] MEDS: LIDOCAINE-MPF 1%, 2ML ENDO PRN ×7 (02:50→18:48)
[2020-11-17] MEDS: PROPOFOL 100 ML IV PRN (03:25)
[2020-11-17 03:52] LABS: BASOPHILS % (AUTO) 0 % (0-1); EOSINOPHILS % (AUTO) 2 % (1-7); LYMPHOCYTES % (AUTO) 6 % (22-44); MEAN CORPUSCULAR HEMOGLOBIN 35.7 pg (27.5-34.5); MEAN CORPUSCULAR HGB CONC 36.7 g/dL (33.2-36.2); MONOCYTES % (AUTO) 3 % (2-9); NEUTROPHILS % (AUTO) 89 % (42-75); PLATELET COUNT 198 x10^3/uL (130-400); RED BLOOD COUNT 3.29 x10^6/uL (4.38-5.82); RED CELL DISTRIBUTION WIDTH 12.7 % (9.4-14.8)
[2020-11-17 04:02] LABS: ANION GAP 3 mmol/L (5-15); CALCIUM 7.1 mg/dL (8.5-10.1); CHLORIDE 102 mmol/L (98-107)
[2020-11-17 04:10] LABS: BILIRUBIN,TOTAL 1.1 mg/dL (0.2-1.0)
[2020-11-17 04:11] LABS: CREATININE 0.98 mg/dL (0.7-1.3)
[2020-11-17 04:12] LABS: TRIGLYCERIDES 1569 mg/dL (50-200)
[2020-11-17] MEDS: INSULIN LISPRO 100 UNITS/ML, PEN SQ-INSULIN SCH ×4 (04:57→20:42)
[2020-11-17 05:43] LABS: MD SCAN
[2020-11-17] MEDS ORDERED: PROPOFOL 100 ML IV PRN (07:30)
[2020-11-17] MEDS: MIDAZOLAM HCL 50 MG in SODIUM CHLORIDE 0.9% 40 ML IV PRN ×3 (10:04→23:45)
[2020-11-17] MEDS: FENTANYL PF 2,500 MCG in SODIUM CHLORIDE 0.9% 200 ML IV PRN ×2 (10:05→20:01)
[2020-11-17] MEDS: INSULIN GLARGINE 100 UNITS/ML, PEN SQ-INSULIN SCH ×2 (10:52→20:42)
[2020-11-17] MEDS: ENOXAPARIN 80 MG/0.8 ML SQ SCH (11:05)
[2020-11-17] MEDS: SULFAMETH./TRIMETHOPRIM 10 ML in DEXTROSE 5% 250 ML IV SCH ×2 (11:07→23:45)
[2020-11-17] MEDS: SODIUM CHLORIDE FLUSH 10ML SYR IVF SCH ×2 (11:09→20:00)
[2020-11-17] MEDS: CHOLECALCIFEROL 5,000u TAB PO/NG SCH (11:10)
[2020-11-17] MEDS: ZINC SULFATE 220 MG CAPSULE NG SCH (11:10)
[2020-11-17] MEDS: THIAMINE 100MG TABLET PO SCH ×2 (11:10→20:00)
[2020-11-17] MEDS: ASCORBIC ACID 500 MG TABLET PO SCH ×2 (11:10→19:59)
[2020-11-17] MEDS: DOCUSATE 50 MG/5 ML, 10ML UDC PO SCH (11:10)
[2020-11-17] MEDS: FUROSEMIDE 40 MG/4 ML IV SCH (11:11)
[2020-11-17] MEDS: MELATONIN 5 MG TABLET PO/NG SCH (19:59)
[2020-11-17] MEDS: GUAIFENESIN/COD200MG-20MG/10ML LIQUID PO PRN (19:59)
[2020-11-18] MEDS: LIDOCAINE-MPF 1%, 2ML ENDO PRN ×2 (00:20→00:30)
[2020-11-18] MEDS: INSULIN LISPRO 100 UNITS/ML, PEN SQ-INSULIN SCH ×4 (03:16→21:17)
[2020-11-18 03:34] LABS: BASOPHILS % (AUTO) 0 % (0-1); EOSINOPHILS % (AUTO) 1 % (1-7); LYMPHOCYTES % (AUTO) 8 % (22-44); MEAN CORPUSCULAR HEMOGLOBIN 33.4 pg (27.5-34.5); MEAN CORPUSCULAR HGB CONC 34.5 g/dL (33.2-36.2); MEAN PLATELET VOLUME 9.4 fL (7.4-10.4); MONOCYTES % (AUTO) 3 % (2-9); NEUTROPHILS % (AUTO) 88 % (42-75); PLATELET COUNT 173 x10^3/uL (130-400); RED BLOOD COUNT 3.08 x10^6/uL (4.38-5.82)
[2020-11-18 03:36] LABS: MD NO
[2020-11-18] MEDS: GUAIFENESIN/COD200MG-20MG/10ML LIQUID PO PRN ×2 (03:39→08:51)
[2020-11-18 03:45] LABS: ANION GAP 3 mmol/L (5-15); CHLORIDE 107 mmol/L (98-107); CREATININE 1.09 mg/dL (0.7-1.3)
[2020-11-18 03:46] LABS: BILIRUBIN,TOTAL 0.6 mg/dL (0.2-1.0)
[2020-11-18] MEDS: METHYLNALTREXONE 12 MG/0.6 ML SYR SQ SCH (07:54)
[2020-11-18] MEDS: ZINC SULFATE 220 MG CAPSULE NG SCH (07:57)
[2020-11-18] MEDS: SODIUM CHLORIDE FLUSH 10ML SYR IVF SCH ×2 (07:58→19:44)
[2020-11-18] MEDS: DOCUSATE 50 MG/5 ML, 10ML UDC PO SCH (07:58)
[2020-11-18] MEDS: FUROSEMIDE 40 MG/4 ML IV SCH (07:58)
[2020-11-18] MEDS: CHOLECALCIFEROL 5,000u TAB PO/NG SCH (07:58)
[2020-11-18] MEDS: ENOXAPARIN 40 MG/0.4 ML SQ SCH (07:59)
[2020-11-18] MEDS: ASCORBIC ACID 500 MG TABLET PO SCH (07:59)
[2020-11-18] MEDS: THIAMINE 100MG TABLET PO SCH (07:59)
[2020-11-18] MEDS: INSULIN GLARGINE 100 UNITS/ML, PEN SQ-INSULIN SCH ×2 (08:01→21:18)
[2020-11-18] MEDS: ACETAMINOPHEN 650 MG/20.3 ML UDC PO PRN (08:51)
[2020-11-18] MEDS: SULFAMETH./TRIMETHOPRIM 10 ML in DEXTROSE 5% 250 ML IV SCH (11:08)
[2020-11-18] MEDS: FENTANYL PF 2,500 MCG in SODIUM CHLORIDE 0.9% 200 ML IV PRN ×2 (11:09→19:45)
[2020-11-18] MEDS ORDERED: VECURONIUM 10 MG IVPush ONE ×3 (13:30→16:00)
[2020-11-18] MEDS: VECURONIUM 50 MG in SODIUM CHLORIDE 0.9% 50 ML IV PRN ×2 (15:33→20:12)
[2020-11-18] MEDS: MEROPENEM 1 GM in SODIUM CHLORIDE 0.9% 100 ML IV SCH ×2 (15:33→23:50)
[2020-11-18] MEDS: MIDAZOLAM HCL 50 MG in SODIUM CHLORIDE 0.9% 40 ML IV PRN ×3 (15:34→23:20)
[2020-11-18] MEDS: MELATONIN 5 MG TABLET PO/NG SCH (19:14)
[2020-11-19] MEDS: INSULIN LISPRO 100 UNITS/ML, PEN SQ-INSULIN SCH ×4 (03:00→20:18)
[2020-11-19] MEDS: MIDAZOLAM HCL 50 MG in SODIUM CHLORIDE 0.9% 40 ML IV PRN ×2 (03:51→09:59)
[2020-11-19] MEDS: FENTANYL PF 2,500 MCG in SODIUM CHLORIDE 0.9% 200 ML IV PRN ×3 (03:51→20:36)
[2020-11-19 04:03] LABS: CALCIUM 8.5 mg/dL (8.5-10.1); CREATININE 0.93 mg/dL (0.7-1.3)
[2020-11-19 04:05] LABS: BILIRUBIN,TOTAL 0.5 mg/dL (0.2-1.0)
[2020-11-19 04:11] LABS: ANION GAP 1 mmol/L (5-15); BASOPHILS % (AUTO) 0 % (0-1); CHLORIDE 107 mmol/L (98-107); EOSINOPHILS % (AUTO) 1 % (1-7); LYMPHOCYTES % (AUTO) 8 % (22-44); MEAN CORPUSCULAR HEMOGLOBIN 33.1 pg (27.5-34.5); MEAN CORPUSCULAR HGB CONC 34.1 g/dL (33.2-36.2); MEAN PLATELET VOLUME 9.6 fL (7.4-10.4); MONOCYTES % (AUTO) 3 % (2-9); NEUTROPHILS % (AUTO) 88 % (42-75); PLATELET COUNT 187 x10^3/uL (130-400); RED BLOOD COUNT 3.33 x10^6/uL (4.38-5.82); RED CELL DISTRIBUTION WIDTH 12.7 % (9.4-14.8)
[2020-11-19 04:14] LABS: MD NO
[2020-11-19] MEDS: FUROSEMIDE 40 MG/4 ML IV SCH (08:23)
[2020-11-19] MEDS: ENOXAPARIN 40 MG/0.4 ML SQ SCH (08:23)
[2020-11-19] MEDS: MEROPENEM 1 GM in SODIUM CHLORIDE 0.9% 100 ML IV SCH ×3 (08:23→23:15)
[2020-11-19] MEDS: DOCUSATE 50 MG/5 ML, 10ML UDC PO SCH (08:23)
[2020-11-19] MEDS: SODIUM CHLORIDE FLUSH 10ML SYR IVF SCH ×2 (08:25→20:12)
[2020-11-19] MEDS: VECURONIUM 50 MG in SODIUM CHLORIDE 0.9% 50 ML IV PRN (08:26)
[2020-11-19] MEDS: INSULIN GLARGINE 100 UNITS/ML, PEN SQ-INSULIN SCH ×2 (08:46→20:19)
[2020-11-19] MEDS ORDERED: ENOXAPARIN 40 MG/0.4 ML SQ ONE (10:00)
[2020-11-19] MEDS: ACETAMINOPHEN 650 MG/20.3 ML UDC PO PRN ×2 (12:22→23:14)
[2020-11-19] MEDS: MIDAZOLAM HCL 100 MG in SODIUM CHLORIDE 0.9% 80 ML IV PRN ×2 (12:22→23:14)
[2020-11-19] MEDS: MELATONIN 5 MG TABLET PO/NG SCH (20:13)
[2020-11-19] MEDS: ENOXAPARIN 80 MG/0.8 ML SQ SCH (20:13)
[2020-11-19] MEDS: NOREPINEPHRINE 8 MG in SODIUM CHLORIDE 0.9% 242 ML IV PRN (20:28)
[2020-11-20] MEDS: INSULIN LISPRO 100 UNITS/ML, PEN SQ-INSULIN SCH ×4 (03:54→20:44)
[2020-11-20 04:31] LABS: BASOPHILS % (AUTO) 1 % (0-1); EOSINOPHILS % (AUTO) 3 % (1-7); LYMPHOCYTES % (AUTO) 9 % (22-44); MEAN CORPUSCULAR HEMOGLOBIN 32.7 pg (27.5-34.5); MEAN CORPUSCULAR HGB CONC 33.5 g/dL (33.2-36.2); MEAN PLATELET VOLUME 9.8 fL (7.4-10.4); MONOCYTES % (AUTO) 3 % (2-9); NEUTROPHILS % (AUTO) 85 % (42-75); PLATELET COUNT 198 x10^3/uL (130-400); RED BLOOD COUNT 3.16 x10^6/uL (4.38-5.82); RED CELL DISTRIBUTION WIDTH 12.7 % (9.4-14.8)
[2020-11-20 04:34] LABS: MD NO
[2020-11-20 04:39] LABS: ANION GAP 3 mmol/L (5-15); CALCIUM 8.1 mg/dL (8.5-10.1); CHLORIDE 109 mmol/L (98-107); CREATININE 1.08 mg/dL (0.7-1.3); TRIGLYCERIDES 218 mg/dL (50-200)
[2020-11-20 04:41] LABS: BILIRUBIN,TOTAL 0.6 mg/dL (0.2-1.0)
[2020-11-20] MEDS: FENTANYL PF 2,500 MCG in SODIUM CHLORIDE 0.9% 200 ML IV PRN ×2 (05:07→15:39)
[2020-11-20] MEDS: FUROSEMIDE 40 MG/4 ML IV SCH (08:03)
[2020-11-20] MEDS: MEROPENEM 1 GM in SODIUM CHLORIDE 0.9% 100 ML IV SCH ×3 (08:03→23:33)
[2020-11-20] MEDS: DOCUSATE 50 MG/5 ML, 10ML UDC PO SCH (08:03)
[2020-11-20] MEDS: ENOXAPARIN 80 MG/0.8 ML SQ SCH ×2 (08:03→20:30)
[2020-11-20] MEDS: INSULIN GLARGINE 100 UNITS/ML, PEN SQ-INSULIN SCH ×2 (08:07→20:45)
[2020-11-20] MEDS: SODIUM CHLORIDE FLUSH 10ML SYR IVF SCH ×2 (09:00→20:29)
[2020-11-20] MEDS: OXYcodone IR 5MG TABLET PO SCH ×3 (11:19→22:42)
[2020-11-20] MEDS: MIDAZOLAM HCL 100 MG in SODIUM CHLORIDE 0.9% 80 ML IV PRN ×2 (11:22→20:47)
[2020-11-20] MEDS: ACETAMINOPHEN 650 MG/20.3 ML UDC PO PRN ×2 (11:33→22:42)
[2020-11-20] MEDS ORDERED: VECURONIUM 10 MG IVPush ONE (13:00)
[2020-11-20] MEDS ORDERED: VECURONIUM 10 MG ONE (13:02)
[2020-11-21] MEDS: FENTANYL PF 2,500 MCG in SODIUM CHLORIDE 0.9% 200 ML IV PRN ×2 (01:46→14:51)
[2020-11-21] MEDS: INSULIN LISPRO 100 UNITS/ML, PEN SQ-INSULIN SCH ×4 (03:16→20:42)
[2020-11-21 03:37] LABS: ANION GAP 2 mmol/L (5-15); CALCIUM 8.1 mg/dL (8.5-10.1); CHLORIDE 110 mmol/L (98-107); CREATININE 1.31 mg/dL (0.7-1.3)
[2020-11-21 03:38] LABS: BASOPHILS % (AUTO) 1 % (0-1); EOSINOPHILS % (AUTO) 4 % (1-7); LYMPHOCYTES % (AUTO) 13 % (22-44); MEAN CORPUSCULAR HEMOGLOBIN 33.2 pg (27.5-34.5); MEAN CORPUSCULAR HGB CONC 34.3 g/dL (33.2-36.2); MEAN PLATELET VOLUME 9.7 fL (7.4-10.4); MONOCYTES % (AUTO) 3 % (2-9); NEUTROPHILS % (AUTO) 79 % (42-75); PLATELET COUNT 206 x10^3/uL (130-400); RED BLOOD COUNT 3.25 x10^6/uL (4.38-5.82); RED CELL DISTRIBUTION WIDTH 12.9 % (9.4-14.8)
[2020-11-21 03:39] LABS: BILIRUBIN,TOTAL 0.5 mg/dL (0.2-1.0)
[2020-11-21] MEDS: NOREPINEPHRINE 8 MG in SODIUM CHLORIDE 0.9% 242 ML IV PRN (04:02)
[2020-11-21 04:31] LABS: MD SCAN
[2020-11-21] MEDS: OXYcodone IR 5MG TABLET PO SCH ×4 (04:49→22:51)
[2020-11-21] MEDS: ENOXAPARIN 80 MG/0.8 ML SQ SCH ×2 (08:14→20:46)
[2020-11-21] MEDS: ACETAMINOPHEN 650 MG/20.3 ML UDC PO PRN ×2 (08:14→22:51)
[2020-11-21] MEDS: MEROPENEM 1 GM in SODIUM CHLORIDE 0.9% 100 ML IV SCH ×3 (08:14→23:33)
[2020-11-21] MEDS: FUROSEMIDE 40 MG/4 ML IV SCH (08:14)
[2020-11-21] MEDS: MIDAZOLAM HCL 100 MG in SODIUM CHLORIDE 0.9% 80 ML IV PRN (08:15)
[2020-11-21] MEDS: INSULIN GLARGINE 100 UNITS/ML, PEN SQ-INSULIN SCH ×2 (09:11→20:42)
[2020-11-21] MEDS: SODIUM CHLORIDE FLUSH 10ML SYR IVF SCH ×2 (11:28→20:41)
[2020-11-22] MEDS: INSULIN LISPRO 100 UNITS/ML, PEN SQ-INSULIN SCH ×4 (03:27→20:34)
[2020-11-22] MEDS: MIDAZOLAM HCL 100 MG in SODIUM CHLORIDE 0.9% 80 ML IV PRN ×2 (03:35→21:16)
[2020-11-22 04:16] LABS: BASOPHILS % (AUTO) 1 % (0-1); EOSINOPHILS % (AUTO) 2 % (1-7); LYMPHOCYTES % (AUTO) 12 % (22-44); MEAN CORPUSCULAR HEMOGLOBIN 33.1 pg (27.5-34.5); MEAN CORPUSCULAR HGB CONC 32.8 g/dL (33.2-36.2); MEAN PLATELET VOLUME 9.8 fL (7.4-10.4); MONOCYTES % (AUTO) 3 % (2-9); NEUTROPHILS % (AUTO) 83 % (42-75); PLATELET COUNT 262 x10^3/uL (130-400)
[2020-11-22 04:28] LABS: CALCIUM 8.3 mg/dL (8.5-10.1); CHLORIDE 111 mmol/L (98-107); CREATININE 1.46 mg/dL (0.7-1.3)
[2020-11-22 04:29] LABS: BILIRUBIN,TOTAL 0.4 mg/dL (0.2-1.0)
[2020-11-22 04:46] LABS: MD SCAN
[2020-11-22 04:49] LABS: ANION GAP 1 mmol/L (5-15)
[2020-11-22] MEDS: OXYcodone IR 5MG TABLET PO SCH ×4 (05:21→23:00)
[2020-11-22] MEDS: FENTANYL PF 2,500 MCG in SODIUM CHLORIDE 0.9% 200 ML IV PRN ×2 (05:52→16:19)
[2020-11-22] MEDS: FUROSEMIDE 40 MG/4 ML IV SCH (08:43)
[2020-11-22] MEDS: MEROPENEM 1 GM in SODIUM CHLORIDE 0.9% 100 ML IV SCH ×2 (08:44→16:21)
[2020-11-22] MEDS: SODIUM CHLORIDE FLUSH 10ML SYR IVF SCH ×2 (08:44→20:36)
[2020-11-22] MEDS: ENOXAPARIN 80 MG/0.8 ML SQ SCH ×2 (08:44→20:36)
[2020-11-22] MEDS: INSULIN GLARGINE 100 UNITS/ML, PEN SQ-INSULIN SCH ×2 (08:45→20:35)
[2020-11-22] MEDS: ACETAMINOPHEN 650 MG/20.3 ML UDC PO PRN ×2 (10:46→22:00)
[2020-11-22] MEDS ORDERED: LINEZOLID 20MG/ML ORAL SUSP PO SCH (17:00)
== END 2020-11-23 02:10 | disposition expired | DRG 870 ==
LOC: ED 17:37 → EDIP 19:29 → ICU 21:13
PROVIDERS: ADMIT Family Medicine; ATTEND Hospitalist
PROC: 5A1955Z Respiratory Ventilation, Greater than 96 Consecutive Hours (ICD-10-PCS; 2020-11-06)
PROC: 0T9B70Z Drainage of Bladder with Drainage Device, Via Natural or Artificial Opening (ICD-10-PCS; 2020-11-06)
PROC: 0BH17EZ Insertion of Endotracheal Airway into Trachea, Via Natural or Artificial Opening (ICD-10-PCS; 2020-11-06)
PROC: 02HV33Z Insertion of Infusion Device into Superior Vena Cava, Percutaneous Approach (ICD-10-PCS; principal; 2020-11-07)
PROC: B548ZZA Ultrasonography of Superior Vena Cava, Guidance (ICD-10-PCS; 2020-11-07)
PROC: XW033E5 Introduction of Remdesivir Anti-infective into Peripheral Vein, Percutaneous Approach, New Technology Group 5 (ICD-10-PCS; 2020-11-07)
DX: A41.9 Sepsis, unspecified organism (principal); G92 Toxic encephalopathy; I26.99 Other pulmonary embolism without acute cor pulmonale; J12.82 Pneumonia due to coronavirus disease 2019; J80 Acute respiratory distress syndrome; N17.0 Acute kidney failure with tubular necrosis; R65.21 Severe sepsis with septic shock; U07.1 COVID-19; E87.4 Mixed disorder of acid-base balance; I50.20 Unspecified systolic (congestive) heart failure; D64.9 Anemia, unspecified; E11.649 Type 2 diabetes mellitus with hypoglycemia without coma; E11.65 Type 2 diabetes mellitus with hyperglycemia; E78.1 Pure hyperglyceridemia; E88.09 Other disorders of plasma-protein metabolism, not elsewhere classified; I27.20 Pulmonary hypertension, unspecified; I95.2 Hypotension due to drugs; L89.319 Pressure ulcer of right buttock, unspecified stage; T41.295A Adverse effect of other general anesthetics, initial encounter; Z51.5 Encounter for palliative care; Z66 Do not resuscitate; R74.01 Elevation of levels of liver transaminase levels; B96.1 Klebsiella pneumoniae [K. pneumoniae] as the cause of diseases classified elsewhere
CPT/HCPCS: 36415; 36600; 84145; 99291; 99292; J3490; 36573; 71045; 80048; 80053; 81001; 82010; 82247; 82436; 82570; 82800; 82803; 82947; 82962; 83036; 83605; 83615; 83735; 83880; 84100; 84133; 84300; 84478; 84484; 85014; 85018; 85025; 85379; 85610; 86140; 87040; 87070; 87077; 87081; 87086; 87186; 87205; 93005; 93306; 94002; 94003; 94640; G0378; J0456; J0461; J0696; J1100; J1650; J1940; J2185; J2250; J2543; J2704; J3010; J3411; J7030; J7060; C1751; J0330; J1815; J7050; J7120; U0003